=== PATIENT | female | born 1995 | race African-American/Black ===

== ENCOUNTER 2019-02-21 16:50 | Emergency (ER) | payer OTHER ==
[~2019-02-21] VITALS: Ht 157.5 cm; Wt 105.0 kg
[2019-02-21 17:23] LABS: BASOPHILS # (AUTO) 0.04 x10^3/uL (0-0.1); BASOPHILS % (AUTO) 0 % (0-1); EOSINOPHILS # (AUTO) 0.08 x10^3/uL (0-0.4); EOSINOPHILS % (AUTO) 1 % (1-7); LYMPHOCYTES # (AUTO) 3.87 x10^3/uL (1-3.4); LYMPHOCYTES % (AUTO) 35 % (22-44); MD NO; MEAN CORPUSCULAR HEMOGLOBIN 25.9 pg (27.0-34.8); MEAN CORPUSCULAR HGB CONC 32.3 g/dL (32.4-35.8); MEAN CORPUSCULAR VOLUME 80.3 fL (80-100); MEAN PLATELET VOLUME 8.2 fL (7.4-10.4); MONOCYTES # (AUTO) 0.44 x10^3/uL (0.2-0.8); MONOCYTES % (AUTO) 4 % (2-9); NEUTROPHILS # (AUTO) 6.74 x10^3/uL (1.8-6.8); NEUTROPHILS % (AUTO) 60 % (42-75); PLATELET COUNT 364 x10^3/uL (130-400); RED BLOOD COUNT 5.12 x10^6/uL (3.82-5.3); RED CELL DISTRIBUTION WIDTH 14.3 % (9.6-15.2)
[2019-02-21 17:35] LABS: ALANINE AMINOTRANSFERASE 23 U/L (12-78); ALBUMIN 3.8 g/dL (3.4-5.0); ANION GAP 5 mmol/L (5-15); CALCIUM 8.9 mg/dL (8.5-10.1); CHLORIDE 110 mmol/L (98-107); CREATININE 0.83 mg/dL (0.55-1.02)
[2019-02-21 17:40] LABS: ALKALINE PHOSPHATASE 74 U/L (45-117); BILIRUBIN,TOTAL 0.3 mg/dL (0.2-1.0); TOTAL PROTEIN 8.3 g/dL (6.4-8.2)
--- NOTE | 2019-02-21 18:17 | NUR ---
METAL AND PLASTIC HEATER: PT TO ROOM FROM [facility]
--- NOTE | 2019-02-21 18:28 | NUR ---
pt to ed with dizziness, nausea, fatigue x4 days; patient reports a decreased appetite but no vomiting or diarrhea, also has midline back pain x2 months without known injury. no medical hx. urine sample obtained. pt resting in gurney with partner at bedside. call light within [facility]
[2019-02-21 19:06] LABS: MICROSCOPIC AUTO
[2019-02-21 19:09] LABS: CULTURE INDICATED? YES
[2019-02-21 19:35] VITALS: BP 115/68
== END 2019-02-21 19:37 | disposition home or self-care (01) ==
LOC: ED 18:54
DX: N30.00 Acute cystitis without hematuria (principal); R53.1 Weakness
CPT/HCPCS: 36415; 80053; 81001; 83690; 84703; 85025; 87086; 93005; 99284